=== PATIENT | female | born 1965 | race African-American/Black ===

== ENCOUNTER 2016-08-23 17:23 | Emergency (ER) | payer SELFPAY | END 2016-08-23 19:00 | disposition home or self-care (01) | LOC: FER 17:23 | DX: S16.1XXA Strain of muscle, fascia and tendon at neck level, initial encounter (principal); I10 Essential (primary) hypertension; Z79.899 Other long term (current) drug therapy; V43.52XA Car driver injured in collision with other type car in traffic accident, initial encounter; Y92.481 Parking lot as the place of occurrence of the external cause | CPT/HCPCS: 71020; 72050; 99284; J1100; J1885 ==

== ENCOUNTER 2020-08-23 11:52 | Day surgery (SDCO) | payer SELFPAY ==
[~2020-08-23 11:52] MED LIST: JANUVIA50 MG PO; LACTINEX1 EACH PO; LEVAQUIN750 MG PO; LOTREL 10-40 M1 EACH PO; METRONIDAZOLE500 MG PO; NEXIUM40 MG PO
[2020-08-23 13:43] LABS: BILIRUBIN NEGATIVE (NEGATIVE); BLOOD NEGATIVE Ery/uL (NEGATIVE); CLARITY CLEAR (CLEAR); COLOR YELLOW (YELLOW); GLUCOSE (U) NORMAL (NORMAL); LEUKOCYTES NEGATIVE Leu/uL (NEGATIVE); NITRITE NEGATIVE (NEGATIVE); PROTEIN NEGATIVE (NEGATIVE); SPECIFIC GRAVITY 1.025 (1.001-1.030); UROBILINOGEN 0.2 mg/dL (0.2-1.0)
[2020-08-23 13:43] LABS: BASOPHIL 0.4 % (0-2); EOSINOPHIL 0.5 % (0-5); HCT 38.5 % (37.0-47.0); HGB 11.9 g/dl (12.5-16.0); LYMPHOCYTE 14.2 % (15-48); MCH 27.2 pg (25.0-31.0); MCHC 30.9 g/dL (32.0-36.0); MCV 88.1 fL (78.0-100.0); MONOCYTE 5.5 % (0-12); MPV 9.3 fL (6.0-9.5); NRBC 0; PLT 386 K/uL (150-400); RBC 4.37 M/uL (4.20-5.40); RDW 13.2 % (11.5-14.0); WBC 9.2 K/uL (4.0-10.5)
[2020-08-23 14:52] LABS: ALBUMIN 3.7 g/dL (3.4-5.0); BILIRUBIN - TOTAL 0.3 mg/dL (0.2-1.0); BUN/CREAT RATIO (CALC) 23.7 RATIO; CREATININE 0.59 mg/dL (0.51-0.95); POTASSIUM 3.8 mmol/L (3.5-5.1); TOTAL PROTEIN 7.7 g/dL (6.4-8.2)
[2020-08-23] MEDS ORDERED: CIPRO500 MG PO (16:52)
[2020-08-23] MEDS ORDERED: METRONIDAZOLE500 MG PO (16:52)
[2020-08-23] MEDS ORDERED: BENTYL10 MG PO (16:52)
[2020-08-23 19:54] LABS: MAGNESIUM 1.9 mg/dL (1.8-2.4); PHOSPHORUS 4.2 mg/dL (2.6-4.7)
[2020-08-24 07:11] LABS: BASOPHIL 0.4 % (0-2); EOSINOPHIL 1.4 % (0-5); HCT 35.6 % (37.0-47.0); LYMPHOCYTE 25.7 % (15-48); MCH 27.2 pg (25.0-31.0); MCHC 30.9 g/dL (32.0-36.0); MCV 87.9 fL (78.0-100.0); MONOCYTE 7.1 % (0-12); MPV 8.8 fL (6.0-9.5); NEUTROPHIL 65.3 % (41-80); NRBC 0; PLT 339 K/uL (150-400); RBC 4.05 M/uL (4.20-5.40); RDW 13.3 % (11.5-14.0); WBC 7.2 K/uL (4.0-10.5)
[2020-08-24 07:28] LABS: ALBUMIN 3.1 g/dL (3.4-5.0); BILIRUBIN - TOTAL 0.3 mg/dL (0.2-1.0); BUN/CREAT RATIO (CALC) 11.5 RATIO; CREATININE 0.61 mg/dL (0.51-0.95); GLOBULIN (CALCULATION) 3.4 g/dL; POTASSIUM 3.2 mmol/L (3.5-5.1); TOTAL PROTEIN 6.5 g/dL (6.4-8.2)
[2020-08-25 06:59] LABS: BASOPHIL 0.6 % (0-2); EOSINOPHIL 2.6 % (0-5); HCT 36.3 % (37.0-47.0); HGB 11.1 g/dl (12.5-16.0); LYMPHOCYTE 30.3 % (15-48); MCH 26.8 pg (25.0-31.0); MCHC 30.6 g/dL (32.0-36.0); MCV 87.7 fL (78.0-100.0); MONOCYTE 7.7 % (0-12); MPV 9.3 fL (6.0-9.5); NEUTROPHIL 58.5 % (41-80); NRBC 0; PLT 364 K/uL (150-400); RBC 4.14 M/uL (4.20-5.40); RDW 13.2 % (11.5-14.0); WBC 6.5 K/uL (4.0-10.5)
[2020-08-25 07:25] LABS: BUN/CREAT RATIO (CALC) 8.1 RATIO; CREATININE 0.62 mg/dL (0.51-0.95); POTASSIUM 3.5 mmol/L (3.5-5.1)
--- NOTE | 2020-08-25 16:20 | NUR ---
no anticipated discharge needs
[2020-08-27] MEDS ORDERED: ZOLOFT50 MG PO (10:10)
[2020-08-27] MEDS ORDERED: ZOFRAN4 M1 PO (10:13)
[2020-08-27] MEDS ORDERED: NORCO 5-325 TA1 EACH PO (10:13)
[2020-08-27] MEDS ORDERED: CEFDINIR300 MG PO (10:13)
[2020-08-27] MEDS ORDERED: BENTYL10 MG PO (10:13)
== END 2020-08-27 13:28 | disposition home or self-care (01) ==
LOC: FER 11:52 → FMS 19:15
PROVIDERS: Nurse Practitioner; Nurse Practitioner Family; ADMIT Internal Medicine
DX: K52.89 Other specified noninfective gastroenteritis and colitis (principal); I10 Essential (primary) hypertension; E11.9 Type 2 diabetes mellitus without complications; G89.29 Other chronic pain; M54.9 Dorsalgia, unspecified; K76.0 Fatty (change of) liver, not elsewhere classified; M47.816 Spondylosis without myelopathy or radiculopathy, lumbar region; Z79.84 Long term (current) use of oral hypoglycemic drugs; Z79.899 Other long term (current) drug therapy; Z20.822 Contact with and (suspected) exposure to COVID-19
CPT/HCPCS: 36415; 80048; 80053; 81003; 82962; 83735; 83993; 84100; 85025; 87045; 87046; 94010; C9113; G0378; J0696; J1200; J1956; J2405; J7030; J7120; Q0162; Q9967; U0002

== ENCOUNTER 2021-03-01 10:51 | Emergency (ER) | payer OTHER ==
[~2021-03-01 10:51] MED LIST changes: +BENTYL10 MG PO; +CEFDINIR300 MG PO; +CIPRO500 MG PO; +NORCO 5-325 TA1 EACH PO; +ZOFRAN4 M1 PO; +ZOLOFT50 MG PO
[2021-03-01 12:36] LABS: BILIRUBIN NEGATIVE (NEGATIVE); BLOOD NEGATIVE Ery/uL (NEGATIVE); CLARITY CLEAR (CLEAR); COLOR YELLOW (YELLOW); GLUCOSE (U) NORMAL (NORMAL); LEUKOCYTES NEGATIVE Leu/uL (NEGATIVE); NITRITE NEGATIVE (NEGATIVE); PROTEIN 1+ mg/dL (NEGATIVE); SPECIFIC GRAVITY 1.025 (1.001-1.030); UROBILINOGEN 0.2 mg/dL (0.2-1.0)
[2021-03-01 12:40] LABS: BACTERIA TRACE; BASOPHIL 0.7 % (0-2); EOSINOPHIL 0 % (0-5); HCT 40.7 % (37.0-47.0); HGB 12.3 g/dl (12.5-16.0); MCH 26.9 pg (25.0-31.0); MCHC 30.2 g/dL (32.0-36.0); MCV 89.1 fL (78.0-100.0); MONOCYTE 10.7 % (0-12); MPV 9.7 fL (6.0-9.5); NEUTROPHIL 54.3 % (41-80); NRBC 0; PLT 284 K/uL (150-400); RBC 4.57 M/uL (4.20-5.40); RDW 13.5 % (11.5-14.0); SQUAMOUS EPITHELIAL CELLS RARE
[2021-03-01 12:51] LABS: BUN/CREAT RATIO (CALC) 12.8 RATIO; CREATININE 0.78 mg/dL (0.51-0.95); POTASSIUM 4.2 mmol/L (3.5-5.1)
[2021-03-01] MEDS ORDERED: ZOFRAN4 M1 PO (14:43)
== END 2021-03-01 15:15 | disposition home or self-care (01) ==
LOC: FER 10:51
PROVIDERS: Nurse Practitioner Family
DX: U07.1 COVID-19 (principal); I10 Essential (primary) hypertension; Z23 Encounter for immunization
CPT/HCPCS: 36415; 71045; 80048; 81001; 85025; J2405; J7030; M0243; Q0244